=== PATIENT | male | born 1975 | race African-American/Black ===

== ENCOUNTER 2018-02-28 13:16 | Observation (INO) | payer SELFPAY ==
[~2018-02-28] VITALS: Ht 185.4 cm; Wt 101.9 kg
[2018-02-28 15:19] LABS: BASOPHIL (%) 0.3 % (0-1); EOSINOPHIL (%) 0.2 % (0-5); HEMATOCRIT 43.7 % (38.0-50.0); HEMOGLOBIN 15.1 G/DL (12.5-16.6); IMMATURE GRANULOCYTE (%) 1.5 % (0.0-0.7); LYMPHOCYTE (%) 10.5 % (15-42); LYMPHOCYTE COUNT 1.3 K/uL (1.0-2.8); MCH 32.3 PG (29.0-34.0); MCHC 34.6 G/DL (30.0-36.0); MCV 93.6 FL (86-99); MONOCYTE (%) 8.5 % (3-12); NEUTROPHIL COUNT 9.7 K/uL (1.8-6.4); PLATELET COUNT 236 K/uL (156-360); RBC DIS.WIDTH-CV 14.6 % (11.8-14.6); RBC DIS.WIDTH-SD 50.1 % (39-53); RED BLOOD COUNT 4.67 M/uL (4.00-5.50); WHITE BLOOD COUNT 12.3 K/uL (4.1-10.2)
[2018-02-28 15:26] LABS: CHLORIDE 104 mEq/L (99-109); POTASSIUM 4.4 mEq/L (3.7-5.4); SODIUM 141 mEq/L (136-147)
[2018-02-28 15:28] LABS: GLUCOSE 97 mg/dL (70-99)
[2018-02-28 15:32] LABS: CREATININE 0.9 mg/dL (0.6-1.3); UREA NITROGEN (BUN) 9 mg/dL (9-23)
[2018-02-28 15:33] LABS: GFR ESTIMATE (CALCULATED) > 59 mL/min/ (58.99-99999)
[2018-02-28 17:31] LABS: SERUM ETHYL ALCOHOL < 10 mg/dL
[2018-02-28 17:56] LABS: PHENCYCLIDINE NEGATIVE (25 ng/mL); THC CANNABINOIDS NEGATIVE (50 ng/mL)
[2018-02-28 17:57] LABS: AMPHETAMINE NEGATIVE (500 ng/mL); BARBITURATES NEGATIVE (200 ng/mL); BENZODIAZEPINES NEGATIVE (150 ng/mL); BUPRENORPHINE NEGATIVE (10 ng/mL); COCAINE NEGATIVE (150 ng/mL); METHADONE NEGATIVE (200 ng/mL); METHAMPHETAMINE NEGATIVE (500 ng/mL); OPIATES (MORPHINE) NEGATIVE (100 ng/mL); OXYCODONE NEGATIVE (100 ng/mL); PROPOXYPHENE NEGATIVE (300 ng/mL); TRICYCLIC ANTIDEPRESSANTS NEGATIVE (300 ng/mL)
[2018-02-28 21:55] VITALS: BP 131/79
[2018-03-01 04:57] VITALS: BP 108/58
[2018-03-01 07:44] VITALS: BP 116/65
[2018-03-01 11:21] VITALS: BP 111/55
[2018-03-01] MEDS ORDERED: DILANTIN100 MG PO (12:37)
[2018-03-01 15:40] VITALS: BP 127/71
[2018-03-01 20:00] VITALS: BP 122/77
[2018-03-01 23:45] VITALS: BP 138/74
[2018-03-02 04:21] VITALS: BP 122/70
[2018-03-02 07:12] VITALS: BP 121/76
[2018-03-02] MEDS ORDERED: LEVETIRACETAM500 MG PO (08:43)
== END 2018-03-02 09:33 | disposition home or self-care (01) ==
LOC: EDBD 13:16 → EME 13:16 → EDOF 19:43 → ENRESERV 19:43 → 4SOUTH 19:43 → ENRESERV 20:45 → 4SOUTH 21:33
PROVIDERS: Emergency Medicine
DX: G40.409 Other generalized epilepsy and epileptic syndromes, not intractable, without status epilepticus (principal); Z91.19 Patient's noncompliance with other medical treatment and regimen
CPT/HCPCS: 70450; 80048; 80185; 85025; 95819; 99281; 99285; G0378; G0480; J1650; J1953; J7030; J7050